=== PATIENT | female | born 1950 | race Native Hawaiian/Other Pacific Islander ===

== ENCOUNTER 2017-11-26 10:35 | Outpatient (CLI) | payer OTHER ==
[2017-11-26 11:00] LABS: PLATELET COUNT 116 K/uL (152-353)
[2017-11-26 11:24] LABS: POTASSIUM 4.9 mmol/L (3.6-5.2)
== END 2017-11-26 19:19 | disposition home or self-care (01) ==
LOC: LABW 10:35
PROVIDERS: Internal Medicine
DX: E11.29 Type 2 diabetes mellitus with other diabetic kidney complication (principal)
CPT/HCPCS: 36415; 80053; 81000; 82043; 82570; 83036; 83735; 84100; 84155; 85027

== ENCOUNTER 2018-07-18 15:11 | Outpatient (CLI) | payer OTHER ==
[2018-07-18 15:29] LABS: PLATELET COUNT 129 K/uL (152-353)
[2018-07-18 16:07] LABS: POTASSIUM 4.5 mmol/L (3.6-5.2)
== END 2018-07-18 23:46 | disposition home or self-care (01) ==
LOC: LABW 15:11
PROVIDERS: Internal Medicine
DX: E11.40 Type 2 diabetes mellitus with diabetic neuropathy, unspecified (principal)
CPT/HCPCS: 36415; 80053; 81000; 82043; 82570; 83735; 84100; 84155; 85027

== ENCOUNTER 2018-11-27 09:49 | Outpatient (CLI) | payer OTHER ==
[2018-11-27 10:04] LABS: PLATELET COUNT 112 K/uL (152-353)
[2018-11-27 11:36] LABS: POTASSIUM 3.8 mmol/L (3.6-5.2)
== END 2018-11-27 19:10 | disposition home or self-care (01) ==
LOC: LABW 09:49
PROVIDERS: Internal Medicine
DX: I10 Essential (primary) hypertension (principal); E11.9 Type 2 diabetes mellitus without complications
CPT/HCPCS: 36415; 80053; 83036; 85027

== ENCOUNTER 2019-02-26 13:41 | Outpatient (CLI) | payer OTHER ==
[2019-02-26 14:02] LABS: PLATELET COUNT 126 K/uL (152-353)
[2019-02-26 14:11] LABS: POTASSIUM 3.7 mmol/L (3.6-5.2)
== END 2019-02-26 20:50 | disposition home or self-care (01) ==
LOC: LABW 13:41
PROVIDERS: Nurse Practitioner
DX: N18.2 Chronic kidney disease, stage 2 (mild) (principal); B35.1 Tinea unguium; R82.998 Other abnormal findings in urine
CPT/HCPCS: 36415; 80053; 81000; 82330; 83735; 84100; 85027; 87086; 87088

== ENCOUNTER 2019-04-21 13:43 | Outpatient (CLI) | payer OTHER | END 2019-04-21 19:35 | disposition home or self-care (01) | LOC: LABW 13:43 | DX: B35.1 Tinea unguium (principal) | CPT/HCPCS: 36415; 84450; 84460 ==

== ENCOUNTER 2019-06-20 15:31 | Outpatient (CLI) | payer OTHER ==
[2019-06-20 16:45] LABS: PLATELET COUNT 142 K/uL (152-353)
[2019-06-20 16:53] LABS: POTASSIUM 3.9 mmol/L (3.6-5.2)
== END 2019-06-20 22:07 | disposition home or self-care (01) ==
LOC: LABW 15:31
PROVIDERS: Internal Medicine
DX: E11.22 Type 2 diabetes mellitus with diabetic chronic kidney disease (principal)
CPT/HCPCS: 36415; 80053; 81000; 82043; 82570; 83036; 83735; 84100; 84155; 85027

== ENCOUNTER → 2019-07-31 | Outpatient (CLI) | payer OTHER ==
[2019-07-31 13:27] LABS: POTASSIUM 3.9 mmol/L (3.6-5.2)
== END ==
LOC: LABW 12:19
PROVIDERS: Internal Medicine
DX: R06.09 Other forms of dyspnea (principal)
CPT/HCPCS: 80053

== ENCOUNTER 2019-08-13 13:30 | Outpatient (CLI) | payer OTHER ==
[2019-08-13 14:24] LABS: PLATELET COUNT 107 K/uL (152-353)
[2019-08-13 14:39] LABS: POTASSIUM 4.3 mmol/L (3.6-5.2)
== END 2019-08-13 22:10 | disposition home or self-care (01) ==
LOC: LABW 13:30
PROVIDERS: Internal Medicine
DX: E11.22 Type 2 diabetes mellitus with diabetic chronic kidney disease (principal); N18.2 Chronic kidney disease, stage 2 (mild); I50.9 Heart failure, unspecified
CPT/HCPCS: 36415; 80053; 81000; 82330; 83036; 83735; 83880; 84100; 85027

== ENCOUNTER 2019-09-05 12:07 | Outpatient (CLI) | payer OTHER ==
[2019-09-05 12:34] LABS: POTASSIUM 3.9 mmol/L (3.6-5.2)
== END 2019-09-05 19:47 | disposition home or self-care (01) ==
LOC: LABW 12:07
PROVIDERS: ATTEND Internal Medicine Cardiovascular Disease
DX: I42.8 Other cardiomyopathies (principal); Z79.899 Other long term (current) drug therapy
CPT/HCPCS: 36415; 80048; 83880

== ENCOUNTER 2019-10-01 12:02 | Outpatient (CLI) | payer OTHER ==
[2019-10-01 12:47] LABS: PLATELET COUNT 88 K/uL (152-353)
[2019-10-01 12:54] LABS: POTASSIUM 4.1 mmol/L (3.6-5.2)
== END 2019-10-01 21:30 | disposition home or self-care (01) ==
LOC: LABW 12:02
PROVIDERS: Internal Medicine
DX: R06.02 Shortness of breath (principal); Z79.899 Other long term (current) drug therapy; E11.22 Type 2 diabetes mellitus with diabetic chronic kidney disease; N18.2 Chronic kidney disease, stage 2 (mild)
CPT/HCPCS: 36415; 80053; 81000; 82330; 83036; 83735; 84100; 85027; 87086; 87088

== ENCOUNTER 2019-11-12 10:37 | Outpatient (CLI) | payer OTHER ==
[2019-11-12 10:55] LABS: PLATELET COUNT 107 K/uL (152-353)
[2019-11-12 11:27] LABS: POTASSIUM 4.4 mmol/L (3.6-5.2)
== END 2019-11-12 19:06 | disposition home or self-care (01) ==
LOC: LABW 10:37
PROVIDERS: Internal Medicine Cardiovascular Disease
DX: Z79.899 Other long term (current) drug therapy (principal); R06.09 Other forms of dyspnea
CPT/HCPCS: 36415; 80053; 83880; 84443; 85027

== ENCOUNTER 2020-04-21 13:08 | Outpatient (CLI) | payer OTHER ==
[2020-04-21 13:29] LABS: POTASSIUM 4.4 mmol/L (3.6-5.2)
== END 2020-04-21 19:58 | disposition home or self-care (01) ==
LOC: LABW 13:08
PROVIDERS: ATTEND Internal Medicine Cardiovascular Disease
DX: I50.9 Heart failure, unspecified (principal)
CPT/HCPCS: 36415; 80048; 83880

== ENCOUNTER 2020-11-09 09:38 | Inpatient (IN) | payer OTHER ==
[~2020-11-09] VITALS: Ht 152.4 cm; Wt 75.5 kg
[2020-11-09] VITALS (10 sets, daily range): BP systolic 105–160; BP diastolic 46–82; TEMP 97.5–98.4; Ht 152.4 cm; Wt 75.5 kg
[2020-11-09] MEDS ORDERED: ASPIRIN ADULT325 MG PO (09:49)
[2020-11-09] MEDS ORDERED: METO-837 PO (09:51)
[2020-11-09] MEDS ORDERED: LYRICA150 MG PO (09:52)
[2020-11-09] MEDS ORDERED: PANTOPRAZOLE 40MG TA PO (09:52)
[2020-11-09] MEDS ORDERED: FERROUS SULF325 M1 PO (09:53)
[2020-11-09] MEDS ORDERED: FAMOTIDINE20 MG PO (09:53)
[2020-11-09] MEDS ORDERED: FURO40TA93 PO (09:53)
[2020-11-09] MEDS ORDERED: INVOKANA100 MG PO (09:54)
[2020-11-09] MEDS ORDERED: CLARITIN10 M1 PO (09:55)
[2020-11-09] MEDS ORDERED: ISOS30TA17 PO (09:55)
[2020-11-09] MEDS ORDERED: MAGNESIUM OXID400 M1 PO (09:55)
[2020-11-09] MEDS ORDERED: ENTRESTO 49-511 TAB PO (09:56)
[2020-11-09] MEDS ORDERED: FORTAMET1000 MG PO (09:56)
[2020-11-09] MEDS ORDERED: MOBIC15 MG PO (09:57)
[2020-11-09] MEDS ORDERED: TRAZ100T PO (09:57)
[2020-11-09] MEDS ORDERED: CARAFATE1 GM PO (09:57)
[2020-11-09] MEDS ORDERED: HUMALOG KW100 UNIT/M SC (09:59)
[2020-11-09] MEDS ORDERED: VITAMIN D50000 UNIT PO (10:00)
[2020-11-09 10:13] LABS: PLATELET COUNT 165 K/uL (152-353)
[2020-11-09 10:21] LABS: POTASSIUM 4.1 mmol/L (3.6-5.2)
--- NOTE | 2020-11-09 18:18 | NUR ---
11/09/20 1610 ADMITED TO ROOM 1102 DX UTI,AMS FROM ER SERVICES DR. TOURE.ORIENTED TO ROOM.CALL LIGHT WITHIN REACH.CC
[2020-11-10] VITALS: BP 118/52; TEMP 98.4
[2020-11-10 04:00] VITALS: BP 114/50; TEMP 98.3
[2020-11-10 05:56] LABS: PLATELET COUNT 150 K/uL (152-353)
[2020-11-10 06:08] LABS: POTASSIUM 4.3 mmol/L (3.6-5.2)
--- NOTE | 2020-11-10 07:30 | NUR ---
Patient has a diagnosis of UTI and MAS and is a 70YOF and is 5' at 159 lbs. and acute cystitis, toxic metabolic encephlopathy and labs reveal RBC, Hgb, Hct, platelet count, Ca, TP, alb all depressed and MCV, MCH and RDW all elevated and receive MGOx, Lasix, FESO4, Lopressor and PMH includes DM II, CHF, CKD, GERD, generalized weakness, confusion, coronary disease, Fe Def. Anemia, CHF. 5' at 159 and IBW = 100+/-10% (90-110 lbs.) and kcal needs for IBW x 25 = 1200, x 30 = 1400, x 35 = 1600, x 40 = 1800, protein needs x .8 to 1.5 = 36 to 68 grams per dya and fluids for IBW x 25 to 40 = 1200 to 1800 ml/cc per day and BMI = 31 and is Class I Obesity and is 159% of IBW. RD available as needed. RD Recommendations: 1-Monitor Labs 2-PT to work with the patient 3-OT to work with the patient 4-Make sure hydrated 5-May want to limit fluids to 1500 ml/cc per day d/t dx. of CHF 6-No diet order please advnace to a CLD x 24 hours then 7-to a FLD < 48 hours and thn advance to a 8-NCS PAIGE or 1800 Calorie Cardiac Renal diet plan 9-Add Protein 30 ml/cc TID and stress HBV protein when eating 10-When on FLD or higher add a supplement if not eating 75% of meals and 11-Add a MVI and 12- an appetite stimulant and d/c 10, 11 and 12 when eating 75% of meals RD available as needed
[2020-11-10 08:00] VITALS: BP 125/59; TEMP 98.3
--- NOTE | 2020-11-10 13:20 | NUR ---
PT STATES HAS TO VOID BUT CAN'T IN DEPENDS. STATES NOT ABLE TO GET UP TO RR. BEDPAN PROVIDED WITHOUT SUCCESS. IN AND OUT CATH PER PROTOCOL, 550 MLS DARK URINE ON RETURN.
[2020-11-10 13:38] VITALS: BP 112/66; TEMP 98.6
--- NOTE | 2020-11-10 14:00 | NUR ---
TO RAD FOR MRI VIA [facility]
--- NOTE | 2020-11-10 15:44 | NUR ---
PT STILL C/O UNABLE TO URINATE IN DEPENDS. DR GALVAN AT BS. ORDERS RECIEVED TO HOLD LASIX FOR NOW AND INSERT GUY. 16 FR GUY PER PROTOCOL, 800 MLS DK YELLOW URINE ON IMMEDIATE RETURN.
[2020-11-10 17:38] VITALS: BP 85/43; TEMP 98
--- NOTE | 2020-11-10 18:44 | NUR ---
PT SEEMS LESS CONFUSED THAN AT BEGINNING OF SHIFT. FEEDING SELF WITH ASSIST TO SET UP TRAY.
[2020-11-10 20:46] VITALS: BP 94/46; TEMP 98.6
--- NOTE | 2020-11-10 21:49 | NUR ---
PM MEDS GIVEN AT THIS TIME. PT. TOLERATED WELL. PT IS ALERT AND ORIENTED TIMES FOUR. PT. IS REACTIVE TO VERBAL STIMULI. NO S/S OF ACUTE DISTRESS BY PT.
[2020-11-11] VITALS: BP 103/45; TEMP 98.6
[2020-11-11 04:00] VITALS: BP 90/38; TEMP 97.7
--- NOTE | 2020-11-11 07:45 | NUR ---
ASSISTED PT UP TO BSC, ASSIT X1. PT ABLE TO STAND AND PIVOT
--- NOTE | 2020-11-11 07:45 | NUR ---
PT ASSISTED UP TO CHAIR, MOD ASSIST X1. GUY CATH CLAMPED
--- NOTE | 2020-11-11 12:00 | NUR ---
PT STATES THAT SHE DOES NOT FEEL LIKE SHE HAS TO VOID. GUY CATH UNCLAMPED TO DRAIN AND RECLAMPED
--- NOTE | 2020-11-11 12:30 | NUR ---
PT PULLED UP IN BED TO EAT. PT DID NOT WANT TO GET OOB TO EAT, STATES THAT SHE WILL LATER.
[2020-11-11 14:06] LABS: PLATELET COUNT 152 K/uL (152-353)
[2020-11-11 14:42] LABS: POTASSIUM 4.6 mmol/L (3.6-5.2)
--- NOTE | 2020-11-11 16:00 | NUR ---
GUY UNCLAMPED TO DRAIN, RECLAMPED
[2020-11-11 20:00] VITALS: BP 120/59; TEMP 98.7
[2020-11-12 00:04] VITALS: BP 138/69; TEMP 98.9
[2020-11-12 04:00] VITALS: BP 136/59; TEMP 98.2
--- NOTE | 2020-11-12 04:24 | NUR ---
11/11/20 2015: PT AWAKE ALERT, DENIES PAIN AT THIS TIME. PT STATED THAT SHE IS WEAK AND HAS NOT ATTEMPTED TO GET UP OUT OF BED. NO DISTRESS NOTED.
[2020-11-12 05:02] LABS: PLATELET COUNT 139 K/uL (152-353)
[2020-11-12 05:19] LABS: POTASSIUM 3.9 mmol/L (3.6-5.2)
--- NOTE | 2020-11-12 06:45 | NUR ---
PT HAS DRANK ALL OF CONTRAST FOR CT SCAN. PT TOLERATED WELL. NO VOICED COMPLAINTS.
[2020-11-12 08:00] VITALS: BP 144/58; TEMP 97.7
[2020-11-12 12:00] VITALS: BP 125/55; TEMP 97.8
[2020-11-12] MEDS ORDERED: FOLI1TAB26 PO (14:01)
[2020-11-12] MEDS ORDERED: DOCU100C10 PO (14:04)
[2020-11-12] MEDS ORDERED: BISA10SU8 RE (14:05)
[2020-11-12] MEDS ORDERED: LEVAQUIN 500MG TAB PO (14:05)
[2020-11-12] MEDS ORDERED: MAGNSUS68 PO (14:06)
--- NOTE | 2020-11-12 14:57 | NUR ---
CALLED AND GAVE REPORT TO PAOLO PT GOING TO [facility], PT ON BEDPAN ATTEMPTING TO HAVE A BM, ADMINISTERING DULCOLAX SUPP AT THIS TIME, WILL CALL EMS FOR TRANSPORT
--- NOTE | 2020-11-12 15:11 | NUR ---
DC INSTRUCTIONS GIVEN AND EXPLAINED TO PT, PT VERBALIZED UNDERSTANDING, EDUCATED PT ON NEW MEDICATIONS, REMOVED 10 CC FROM GUY BALLOON AND REMOVED GUY, PT TOLERATED WELL, EMPTIED 600CC OF CLOUDY YELLOW URINE FROM GUY BAG, IV REMOVED WITH CATHETER INTACT, MELISSA FROM OT COMING TO EVALUATE PT BEFORE BEING TRANSFERRED TO [facility]
--- NOTE | 2020-11-12 15:43 | NUR ---
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
--- NOTE | 2020-11-12 17:00 | NUR ---
EMS HERE TO TRANSFER PT TO [facility], PT TRANSFERRED TO [facility] WITHOUT DIFFICULTY, SUITCASE AND PHONE SENT WITH PT, PT TRANFERRED TO [facility]
== END 2020-11-12 19:14 | DRG 689 ==
LOC: ED 09:38 → MED/SURG 15:29 → UNDODEPER 11-11 16:01 → MED/SURG 11-12 19:14
PROVIDERS: Internal Medicine; ADMIT Emergency Medicine Emergency Medical Services; ATTEND Internal Medicine Endocrinology, Diabetes & Metabolism
DX: N30.00 Acute cystitis without hematuria (principal); G92.8 Other toxic encephalopathy; I13.0 Hypertensive heart and chronic kidney disease with heart failure and stage 1 through stage 4 chronic kidney disease, or unspecified chronic kidney disease; B96.1 Klebsiella pneumoniae [K. pneumoniae] as the cause of diseases classified elsewhere; I25.10 Atherosclerotic heart disease of native coronary artery without angina pectoris; K21.9 Gastro-esophageal reflux disease without esophagitis; G89.4 Chronic pain syndrome; E11.22 Type 2 diabetes mellitus with diabetic chronic kidney disease; N18.2 Chronic kidney disease, stage 2 (mild); I50.89 Other heart failure; E83.42 Hypomagnesemia
CPT/HCPCS: 36415; 80053; 81000; 82140; 82607; 82728; 82746; 82948; 83540; 83690; 84443; 84484; 85027; 87077; 87086; 87088; 87186; 87635; 93005; 96360; 96365; 96366; 96367; 96372; 96375; 96376; 99284; G0283-GP; J0696; J1650; J1815; J1956; J2270; J2405; Q9963; U0003

== ENCOUNTER 2020-11-12 16:30 | Inpatient (IN) | payer OTHER ==
[~2020-11-12 16:30] MED LIST: ASPIRIN ADULT325 MG PO; BISA10SU8 RE; CARAFATE1 GM PO; CLARITIN10 M1 PO; DOCU100C10 PO; ENTRESTO 49-511 TAB PO; FAMOTIDINE20 MG PO; FERROUS SULF325 M1 PO; FOLI1TAB26 PO; FORTAMET1000 MG PO; FURO40TA93 PO; HUMALOG KW100 UNIT/M SC; INVOKANA100 MG PO; ISOS30TA17 PO; LEVAQUIN 500MG TAB PO; LYRICA150 MG PO; MAGNESIUM OXID400 M1 PO; MAGNSUS68 PO; METO-837 PO; MOBIC15 MG PO; PANTOPRAZOLE 40MG TA PO; TRAZ100T PO; VITAMIN D50000 UNIT PO
== END 2020-12-13 10:16 | disposition still patient (30) ==
LOC: PAVC 16:30
PROVIDERS: ADMIT Internal Medicine; ATTEND Internal Medicine
DX: N39.0 Urinary tract infection, site not specified (principal); B96.1 Klebsiella pneumoniae [K. pneumoniae] as the cause of diseases classified elsewhere; R48.8 Other symbolic dysfunctions; M62.81 Muscle weakness (generalized); Z74.1 Need for assistance with personal care; R26.2 Difficulty in walking, not elsewhere classified; I50.9 Heart failure, unspecified
CPT/HCPCS: G0283-GP

== ENCOUNTER 2020-12-10 08:25 | Outpatient (CLI) | payer OTHER | END 2020-12-10 21:01 | disposition home or self-care (01) | LOC: CT 08:25 | PROVIDERS: ATTEND Internal Medicine | DX: R10.2 Pelvic and perineal pain (principal); M25.552 Pain in left hip; M25.551 Pain in right hip | CPT/HCPCS: 87081 ==

== ENCOUNTER 2020-12-13 09:03 | Outpatient (CLI) | payer OTHER ==
[2020-12-13 10:04] LABS: PLATELET COUNT 85 K/uL (152-353)
[2020-12-13 10:06] LABS: POTASSIUM 3.7 mmol/L (3.6-5.2)
== END 2020-12-13 19:21 | disposition home or self-care (01) ==
LOC: LAB 09:03
PROVIDERS: ATTEND Internal Medicine
DX: E11.9 Type 2 diabetes mellitus without complications (principal); D50.8 Other iron deficiency anemias; E55.9 Vitamin D deficiency, unspecified; N18.2 Chronic kidney disease, stage 2 (mild); M81.0 Age-related osteoporosis without current pathological fracture; I50.9 Heart failure, unspecified; I12.9 Hypertensive chronic kidney disease with stage 1 through stage 4 chronic kidney disease, or unspecified chronic kidney disease; I11.0 Hypertensive heart disease with heart failure
CPT/HCPCS: 80053; 80061; 82306; 82607; 82728; 82746; 83036; 83540; 84443; 85027

== ENCOUNTER 2020-12-13 10:41 | Inpatient (IN) | payer OTHER ==
[2020-12-31 08:38] LABS: PLATELET COUNT 117 K/uL (152-353)
== END 2021-01-12 11:18 | disposition still patient (30) ==
LOC: PAVC 10:41
PROVIDERS: ADMIT Internal Medicine; ATTEND Internal Medicine
DX: I21.4 Non-ST elevation (NSTEMI) myocardial infarction (principal); M62.81 Muscle weakness (generalized); Z74.1 Need for assistance with personal care; R26.81 Unsteadiness on feet; G20 Parkinson's disease; I50.22 Chronic systolic (congestive) heart failure; K74.69 Other cirrhosis of liver; S32.010D Wedge compression fracture of first lumbar vertebra, subsequent encounter for fracture with routine healing
CPT/HCPCS: 85027

== ENCOUNTER → 2020-12-16 | Outpatient (CLI) | payer OTHER | LOC: LAB 22:46 | PROVIDERS: ATTEND Internal Medicine | DX: N39.0 Urinary tract infection, site not specified (principal); B96.1 Klebsiella pneumoniae [K. pneumoniae] as the cause of diseases classified elsewhere | CPT/HCPCS: 81000 ==

== ENCOUNTER 2020-12-18 10:30 | Inpatient (IN) | payer OTHER ==
[~2020-12-18] VITALS: Ht 152.4 cm; Wt 69.9 kg
[2020-12-18 10:30] VITALS: BP 131/74; TEMP 97.6
[2020-12-18 11:05] LABS: POTASSIUM 3.8 mmol/L (3.6-5.2)
[2020-12-18 11:17] LABS: PARTIAL THROMBOPLASTIN TIME 23.3 SECONDS (24.5-33.6)
[2020-12-18 11:22] LABS: PLATELET COUNT 116 K/uL (152-353)
[2020-12-18 14:30] VITALS: BP 130/69; TEMP 98.3
[2020-12-18 18:30] VITALS: BP 135/67; TEMP 98.5
[2020-12-19 00:27] VITALS: BP 136/62; TEMP 99.3
[2020-12-19 02:30] VITALS: BP 136/62; TEMP 99.3
[2020-12-19 03:26] VITALS: BP 135/67; TEMP 98.5; Ht 152.4 cm; Wt 69.9 kg
[2020-12-19 04:00] VITALS: BP 146/68; TEMP 99.4
[2020-12-19 04:35] LABS: PLATELET COUNT 104 K/uL (152-353)
[2020-12-19 04:45] LABS: POTASSIUM 3.2 mmol/L (3.6-5.2)
== END 2020-12-19 19:51 | disposition short-term general hospital (02) | DRG 281 ==
LOC: ED 10:30 → MED/SURG 12:30 → ICU 12-19 09:50
PROVIDERS: Emergency Medicine; ADMIT Internal Medicine Endocrinology, Diabetes & Metabolism; ATTEND Internal Medicine Endocrinology, Diabetes & Metabolism
DX: I21.4 Non-ST elevation (NSTEMI) myocardial infarction (principal); I13.0 Hypertensive heart and chronic kidney disease with heart failure and stage 1 through stage 4 chronic kidney disease, or unspecified chronic kidney disease; R41.82 Altered mental status, unspecified; G20 Parkinson's disease; F02.80 Dementia in other diseases classified elsewhere, unspecified severity, without behavioral disturbance, psychotic disturbance, mood disturbance, and anxiety; E11.22 Type 2 diabetes mellitus with diabetic chronic kidney disease; N18.30 Chronic kidney disease, stage 3 unspecified; I50.89 Other heart failure
CPT/HCPCS: 36415; 80048; 80053; 81000; 82550; 83880; 84484; 85027; 85610; 85730; 87635; 93005; 94760; 99284; J1644; J2270; J2550; U0003

== ENCOUNTER 2021-01-04 13:34 | Outpatient (CLI) | payer OTHER | END 2021-01-04 18:59 | disposition home or self-care (01) | LOC: RAD 13:34 | PROVIDERS: ATTEND Internal Medicine | DX: M54.50 Low back pain, unspecified (principal) ==

== ENCOUNTER 2021-01-12 09:29 | Outpatient (CLI) | payer OTHER | END 2021-01-12 20:17 | disposition home or self-care (01) | LOC: MRI 09:29 | PROVIDERS: ATTEND Internal Medicine | DX: M54.59 Other low back pain (principal) ==

== ENCOUNTER 2021-01-12 11:32 | Inpatient (IN) | payer OTHER | END 2021-02-12 09:07 | disposition still patient (30) | LOC: PAVC 11:32 | PROVIDERS: ADMIT Internal Medicine; ATTEND Internal Medicine ==

== ENCOUNTER → 2021-01-24 | Outpatient (CLI) | payer OTHER | LOC: RAD 09:52 | PROVIDERS: ATTEND Internal Medicine | DX: S32.010D Wedge compression fracture of first lumbar vertebra, subsequent encounter for fracture with routine healing (principal); Z13.820 Encounter for screening for osteoporosis; N95.8 Other specified menopausal and perimenopausal disorders; Y92.9 Unspecified place or not applicable ==

== ENCOUNTER 2021-02-12 09:20 | Inpatient (IN) | payer OTHER | END 2021-03-15 08:55 | disposition still patient (30) | LOC: PAVC 09:20 | PROVIDERS: ADMIT Internal Medicine; ATTEND Internal Medicine ==

== ENCOUNTER 2021-02-15 10:00 | Outpatient (CLI) | payer OTHER ==
[2021-02-15 10:59] LABS: PLATELET COUNT 88 K/uL (152-353)
[2021-02-15 11:13] LABS: POTASSIUM 3.2 mmol/L (3.6-5.2)
== END 2021-02-15 19:11 | disposition home or self-care (01) ==
LOC: LAB 10:00
PROVIDERS: ATTEND Internal Medicine
DX: I50.9 Heart failure, unspecified (principal); K74.69 Other cirrhosis of liver; R50.9 Fever, unspecified; E11.9 Type 2 diabetes mellitus without complications; D50.8 Other iron deficiency anemias; E55.9 Vitamin D deficiency, unspecified
CPT/HCPCS: 80053; 80061; 82248; 82306; 82728; 83036; 83540; 85027

== ENCOUNTER 2021-02-15 16:41 | Outpatient (CLI) | payer OTHER | END 2021-02-15 19:18 | disposition home or self-care (01) | LOC: LAB 16:41 | PROVIDERS: ATTEND Internal Medicine | DX: N39.0 Urinary tract infection, site not specified (principal) | CPT/HCPCS: 81000; 87088 ==

== ENCOUNTER 2021-03-01 06:59 | Outpatient (CLI) | payer OTHER ==
[2021-03-01 07:42] LABS: POTASSIUM 4.2 mmol/L (3.6-5.2)
== END 2021-03-01 18:52 | disposition home or self-care (01) ==
LOC: LAB 06:59
PROVIDERS: ATTEND Internal Medicine
DX: E87.1 Hypo-osmolality and hyponatremia (principal)
CPT/HCPCS: 80048

== ENCOUNTER 2021-03-14 13:57 | Outpatient (CLI) | payer OTHER | END 2021-03-14 19:06 | disposition home or self-care (01) | LOC: RAD 13:57 | PROVIDERS: ATTEND Internal Medicine | DX: S32.010D Wedge compression fracture of first lumbar vertebra, subsequent encounter for fracture with routine healing (principal); Y92.9 Unspecified place or not applicable ==

== ENCOUNTER 2021-03-15 11:40 | Inpatient (IN) | payer OTHER | END 2021-04-12 09:07 | disposition still patient (30) | LOC: PAVC 11:40 | PROVIDERS: ADMIT Internal Medicine; ATTEND Internal Medicine ==

== ENCOUNTER 2021-04-12 13:48 | Inpatient (IN) | payer OTHER | END 2021-05-13 14:11 | disposition still patient (30) | LOC: PAVC 13:48 | PROVIDERS: ADMIT Internal Medicine; ATTEND Internal Medicine ==

== ENCOUNTER 2021-05-02 17:15 | Outpatient (CLI) | payer OTHER | END 2021-05-02 19:16 | disposition home or self-care (01) | LOC: LAB 17:15 | PROVIDERS: ATTEND Internal Medicine | DX: R82.998 Other abnormal findings in urine (principal) | CPT/HCPCS: 81000; 87077; 87086; 87088; 87186 ==

== ENCOUNTER 2021-05-13 07:27 | Outpatient (CLI) | payer OTHER | END 2021-05-13 20:42 | disposition home or self-care (01) | LOC: LAB 07:27 | PROVIDERS: ATTEND Internal Medicine | DX: E11.9 Type 2 diabetes mellitus without complications (principal) | CPT/HCPCS: 83036 ==

== ENCOUNTER 2021-05-13 15:17 | Inpatient (IN) | payer OTHER | END 2021-06-12 10:34 | disposition still patient (30) | LOC: PAVC 15:17 | PROVIDERS: ADMIT Internal Medicine; ATTEND Internal Medicine ==

== ENCOUNTER 2021-06-12 02:07 | Inpatient (IN) | payer OTHER | END 2021-07-13 09:56 | disposition still patient (30) | LOC: PAVC 02:07 | PROVIDERS: ADMIT Internal Medicine; ATTEND Internal Medicine ==

== ENCOUNTER → 2021-06-15 | Outpatient (CLI) | payer OTHER | LOC: LAB 19:36 | PROVIDERS: ATTEND Internal Medicine | DX: R35.0 Frequency of micturition (principal); R30.9 Painful micturition, unspecified | CPT/HCPCS: 81000 ==

== ENCOUNTER 2021-07-04 11:23 | Outpatient (CLI) | payer OTHER | END 2021-07-04 19:00 | disposition home or self-care (01) | LOC: LAB 11:23 | PROVIDERS: ATTEND Internal Medicine | DX: N18.30 Chronic kidney disease, stage 3 unspecified (principal) | CPT/HCPCS: 81000 ==

== ENCOUNTER 2021-07-19 10:46 | Outpatient (CLI) | payer OTHER | END 2021-07-19 18:51 | disposition home or self-care (01) | LOC: MAMMO 10:46 | PROVIDERS: ATTEND Internal Medicine | DX: Z12.31 Encounter for screening mammogram for malignant neoplasm of breast (principal) ==

== ENCOUNTER 2021-09-07 17:09 | Emergency (ER) | payer OTHER ==
[~2021-09-07] VITALS: Ht 152.4 cm; Wt 66.2 kg
[2021-09-07 17:10] VITALS: TEMP 98.8
[2021-09-07 17:55] LABS: PLATELET COUNT 100 K/uL (152-353)
[2021-09-07 21:30] VITALS: BP 152/65
== END 2021-09-07 21:30 | disposition home or self-care (01) ==
LOC: ED 17:09
PROVIDERS: Emergency Medicine Emergency Medical Services
PROC: 0HQ1XZZ Repair Face Skin, External Approach (ICD-10-PCS; principal; 2021-09-07)
PROC: 2W3MX1Z Immobilization of Left Lower Extremity using Splint (ICD-10-PCS; 2021-09-07)
DX: S76.112A Strain of left quadriceps muscle, fascia and tendon, initial encounter (principal); S01.81XA Laceration without foreign body of other part of head, initial encounter; S80.211A Abrasion, right knee, initial encounter; W01.198A Fall on same level from slipping, tripping and stumbling with subsequent striking against other object, initial encounter; Y93.01 Activity, walking, marching and hiking; Y92.89 Other specified places as the place of occurrence of the external cause
CPT/HCPCS: 80048; 85027; 96365; 96375; 96376; 99284; J2001; J2270; J2405

== ENCOUNTER 2021-09-15 15:39 | Outpatient (CLI) | payer OTHER ==
[2021-09-15 17:05] LABS: PLATELET COUNT 116 K/uL (152-353)
[2021-09-15 17:45] LABS: POTASSIUM 5.2 mmol/L (3.6-5.2)
== END 2021-09-15 20:57 | disposition home or self-care (01) ==
LOC: LAB 15:39
PROVIDERS: ATTEND Internal Medicine
DX: D50.8 Other iron deficiency anemias (principal); N18.2 Chronic kidney disease, stage 2 (mild); E11.22 Type 2 diabetes mellitus with diabetic chronic kidney disease
CPT/HCPCS: 80053; 81002; 82043; 82306; 82330; 82550; 82570; 82607; 82728; 82746; 83036; 83540; 83550; 83735; 83970; 84100; 84156; 84550; 85027

== ENCOUNTER 2022-03-23 10:38 | Outpatient (CLI) | payer OTHER | END 2022-03-23 20:41 | disposition home or self-care (01) | LOC: CT 10:38 | PROVIDERS: ATTEND Internal Medicine | DX: R10.9 Unspecified abdominal pain (principal); E11.29 Type 2 diabetes mellitus with other diabetic kidney complication; E55.9 Vitamin D deficiency, unspecified; R53.81 Other malaise; I10 Essential (primary) hypertension | CPT/HCPCS: 36415; 82565; 84520; Q9963 ==